=== PATIENT | female | born 1955 | race Caucasian/White ===

== ENCOUNTER → 2017-06-27 | Outpatient (CLI) | payer MEDICARE, MEDICAID ==
[2017-06-27 15:15] LABS: HEMOGLOBIN 12.6 g/dL (12.2-16.2); LYMPH # 1.8 K/mm3 (0.7-4.5); LYMPH % 29.8 % (10-50.0)
[2017-06-27 17:16] LABS: BUN 17 mg/dL (7-18)
[2017-06-27 17:17] LABS: GFR (ESTIMATED) 64 ML/MIN (59-)
== END ==
LOC: LAB 14:22
PROVIDERS: Nurse Practitioner Family
DX: R07.89 Other chest pain (principal); Z79.899 Other long term (current) drug therapy

== ENCOUNTER → 2017-07-14 | Outpatient (CLI) | payer MEDICARE, MEDICAID ==
[~2017-07-14] MED LIST: ADULT LOW DOSE81 MG PO; BUPROPION HYDR150 M3 PO; CIPRO 500MG TA500 MG PO; FLONASE ALLERG9.9 ML NS; MEDROL 4MG. DOSE4 MG PO; NITROFURANTOIN100 M4 PO; OMEPRAZOLE20 MG PO; PHENERGAN 12.12.5 M1 PO; PRAVACHOL40 MG PO; RESTORIL 30MG C30 MG PO; SEPTRA DS 800 M1 TAB PO; TEMAZEPAM30 MG PO; TESSALON PERLE100 MG PO; TRAZODONE 50MG50 MG PO; TRAZODONE HCL50 MG PO; WELLBUTRIN XL150 MG PO
--- NOTE | 2017-07-14 20:48 | RADIOLOGY REPORT PS360 ---
PROCEDURE: 2-D M-mode and color Doppler study INDICATIONS FOR THE TEST: Chest pain + COPD Heart Murmur Tobacco Smoking Palpitations Fatigue Syncope Edema Hypertension Diabetes Mellitus Rheumatic Fever SOB+LEÓN Obesity+Hyperlipidemia+ Family History HD Additional History PATIENT INFORMATION HEIGHT: 68 WEIGHT:238 GENDER: Female B/P:112/62 2-D/M-MODE INTERPRETATION: 2-D MEASUREMENTS OBSERVED VALUES IN CMS Right Ventricular Dimension (RVDd) 2.4 Interventricular Septum (Thickness)(IVsd) 1.1 Left Ventricular Internal Dimensions(LVIDd) 5.5 Left Ventricular Posterior Wall (Thickness)(LVPWd) 0.7 Aortic Root 3.4 Aortic Cusp Separation 1.9 Left Atrial Dimensions (LAD) 3.6 2D 1. Left atrium is qualitatively mildly enlarged, left ventricle is normal size, there is borderline concentric left ventricular hypertrophy, visually estimated ejection fraction 55% with no obvious regional wall motion abnormality. 2. The right atrium is mildly enlarged, right ventricle is mildly dilated with normal contractility. 3. The aortic valve is minimally thickened and calcified leaflet continue to display good mobility. 4. The mitral and tricuspid valve leaflets are minimally thickened. 5. The pulmonic valve is poorly visualized. 6. No significant pericardial effusion noted. DOPPLER INTERROGATION: Doppler interrogation of the aortic, mitral and tricuspid valvular presence of mild mitral and tricuspid regurgitation, tricuspid and jet velocity is insufficient for calculation of the right ventricular systolic pressure, grade 1 diastolic dysfunction seen with tissue Doppler evidence of raised left atrial pressure. CONCLUSION: 1. Mildly enlarged left atrium, normal left ventricular size, borderline concentric left ventricular hypertrophy, visually estimated ejection fraction 55% with no obvious regional wall motion abnormality, grade 1 diastolic dysfunction seen with tissue Doppler evidence of raised left atrial pressure. 2. Mildly enlarged right ventricle with normal contractility. 3. Mild mitral and tricuspid regurgitation. 4. No significant pericardial effusion noted.
--- NOTE | 2017-07-15 15:08 | RADIOLOGY REPORT PS360 ---
CARDIOLITE SPECT MYOCARDIAL PERFUSION SCAN, REST AND STRESS: EXERCISE STRESS [facility] REVIEW QGS EF AND WALL MOTION EVALUATION: QPS - PERFUSION EVALUATION HISTORY: chest pain DOSE: 10.80 mCi technetium 99m mibi intravenously at rest followed by 31.9 mCi technetium 99m mibi following the intravenous ministration of 0.4 mg of Lexiscan. Resting blood pressure is 112/62. Stress blood pressure 99/55. FINDINGS: Ejection fraction is calculated to be 64%. Stress images reveal severely decreased activity in the anterior apical wall while rest images reveal mildly decreased activity. IMPRESSION: This is a high risk abnormal stress test with severe anterior apical reversible ischemia. Normal ejection fraction normal wall motion
--- NOTE | 2017-07-15 15:08 | RADIOLOGY REPORT PS360 ---
CARDIOLITE SPECT MYOCARDIAL PERFUSION SCAN, REST AND STRESS: EXERCISE STRESS [facility] REVIEW QGS EF AND WALL MOTION EVALUATION: QPS - PERFUSION EVALUATION HISTORY: chest pain DOSE: 10.80 mCi technetium 99m mibi intravenously at rest followed by 31.9 mCi technetium 99m mibi following the intravenous ministration of 0.4 mg of Lexiscan. Resting blood pressure is 112/62. Stress blood pressure 99/55. FINDINGS: Ejection fraction is calculated to be 64%. Stress images reveal severely decreased activity in the anterior apical wall while rest images reveal mildly decreased activity. IMPRESSION: This is a high risk abnormal stress test with severe anterior apical reversible ischemia. Normal ejection fraction normal wall motion
== END ==
LOC: RAD 07:26
DX: R07.9 Chest pain, unspecified (principal); E78.5 Hyperlipidemia, unspecified; E11.9 Type 2 diabetes mellitus without complications; Z87.891 Personal history of nicotine dependence
CPT/HCPCS: A9502; J2785

== ENCOUNTER 2017-07-16 08:43 | Day surgery (SDC) | payer MEDICARE, MEDICAID ==
[2017-07-16 09:15] LABS: HEMOGLOBIN 12.8 g/dL (12.2-16.2); LYMPH # 1.6 K/mm3 (0.7-4.5)
[2017-07-16 09:20] LABS: BUN 18 mg/dL (7-18)
[2017-07-16 09:22] LABS: GFR (ESTIMATED) 64 ML/MIN (59-)
--- NOTE | 2017-07-16 11:28 | RADIOLOGY REPORT PS360 ---
CARDIAC CATHETERIZATION DATE OF CATHETERIZATION:07/16/2017 11:01 AM PROCEDURES: 1. Left heart catheterization 2. Left ventriculogram 3. Selective coronary angiogram INDICATION FOR TEST: 1. Abnormal high risk Myoview 2. Angina pectoris 3. Preoperative evaluation Informed consent was obtained prior to the procedure. COMPLICATIONS: None ESTIMATED BLOOD LOSS: Less than 10 ml. TECHNIQUE: One percent lidocaine used to anesthetize the right anterior aspect of the wrist. The right radial artery was accessed via the Seldinger technique. A 6 Bengali sheath was placed in the right radial artery. 2.5 mg of verapamil, 800 mcg of nitroglycerin and 5000 U Heparin were given through the arterial sheath. The Carol catheter was also used to perform left heart catheterization and left ventriculography. At the end of the procedure the patient was transferred to the post-op holding area in stable condition for arterial sheath removal. ANGIOGRAPHIC RESULTS: 1. The left main artery normal 2. The left anterior descending artery is proximally normal and has a long mid vessel 60% systolic myocardial bridge 3. The circumflex artery nondominant normal 4. The right coronary artery dominant normal 5. The CASTELLANOS ventriculogram reveals normal 65% 6. The left ventricular end-diastolic pressure 15 mmHg IMPRESSION: 1. 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 Normal ejection fraction 3. Mildly elevated LVEDP PLAN: 1. Medical management beta blockers and or diltiazem or verapamil 2. Risk factor modification 3. Patient is a low and acceptable risk to proceed with orthopedic surgery
[2017-07-16 15:06] VITALS: BP 118/58
== END 2017-07-16 15:08 | disposition home or self-care (01) ==
LOC: CATHLAB 08:43
PROVIDERS: Internal Medicine
PROC: B2111ZZ Fluoroscopy of Multiple Coronary Arteries using Low Osmolar Contrast (ICD-10-PCS; 2017-07-16)
PROC: B2151ZZ Fluoroscopy of Left Heart using Low Osmolar Contrast (ICD-10-PCS; 2017-07-16)
PROC: 4A023N7 Measurement of Cardiac Sampling and Pressure, Left Heart, Percutaneous Approach (ICD-10-PCS; principal; 2017-07-16 11:00)
DX: R07.9 Chest pain, unspecified (principal); R94.39 Abnormal result of other cardiovascular function study; E11.9 Type 2 diabetes mellitus without complications
CPT/HCPCS: C1725; C1769; J1644; Q9967

== ENCOUNTER → 2017-08-27 | Outpatient (CLI) | payer MEDICARE, MEDICAID ==
[2017-08-27 18:31] LABS: BUN 12 mg/dL (7-18)
[2017-08-27 18:32] LABS: GFR (ESTIMATED) 57 ML/MIN (59-)
== END ==
LOC: LAB 17:46
PROVIDERS: Nurse Practitioner Family
DX: R25.2 Cramp and spasm (principal)